=== PATIENT | male | born 1965 | race Caucasian/White ===

== ENCOUNTER 2021-01-21 14:31 | Emergency (ER) | payer BC ==
[2021-01-21] MEDS ORDERED: Lidocaine 1% with EPINEPHrine 1:100,000 20 ML MDV INFILT ONE (14:38)
[2021-01-21] MEDS ORDERED: Lidocaine 1% with EPINEPHrine 1:100,000 20 ML MDV ONE (14:40)
== END 2021-01-21 15:40 | disposition home or self-care (01) ==
LOC: VM.ED 14:31
DX: S61.512A Laceration without foreign body of left wrist, initial encounter (principal); Z88.8 Allergy status to other drugs, medicaments and biological substances; W23.0XXA Caught, crushed, jammed, or pinched between moving objects, initial encounter
CPT/HCPCS: 12002; 99282-25; 99283